=== PATIENT | male | born 1985 | race Caucasian/White ===

== ENCOUNTER → 2017-08-11 | Outpatient (CLI) | payer OTHER | LOC: BRMIMAGING 16:26 | DX: M54.5 Low back pain (principal); M25.551 Pain in right hip; R29.4 Clicking hip | CPT/HCPCS: 72100-PO; 72200-PO; 73502-PO ==

== ENCOUNTER → 2017-08-14 | Outpatient (CLI) | payer OTHER | LOC: BRMIMAGING 12:41 | PROVIDERS: ATTEND Internal Medicine | DX: M54.5 Low back pain (principal) | CPT/HCPCS: 72100-PO ==